=== PATIENT | female | born 1970 | race Caucasian/White ===

== ENCOUNTER → 2020-09-24 | Outpatient (CLI) | payer OTHER ==
[~2020-09-24] MED LIST: ATOR20TA37 PO; CHLO25TA PO; CHLORHEXIDINE 15 ML UDC ONE; LOSA25TA12 PO; VENLAFAXINE PO
[2020-09-24 15:29] LABS: ALANINE AMINOTRANSFERASE 39 U/L (12-78); ANION GAP 6 mmol/L (5-15); CHLORIDE 101 mmol/L (98-107)
[2020-09-24 15:32] LABS: BASOPHILS % (AUTO) 1 % (0-1); EOSINOPHILS % (AUTO) 1 % (1-7); LYMPHOCYTES % (AUTO) 22 % (22-44); MEAN CORPUSCULAR HEMOGLOBIN 30.2 pg (27.0-34.8); MEAN CORPUSCULAR HGB CONC 33.6 g/dL (32.4-35.8); MEAN PLATELET VOLUME 6.8 fL (7.4-10.4); MONOCYTES % (AUTO) 12 % (2-9); NEUTROPHILS % (AUTO) 64 % (42-75); PLATELET COUNT 604 x10^3/uL (130-400); RED BLOOD COUNT 4.17 x10^6/uL (3.82-5.3); RED CELL DISTRIBUTION WIDTH 14.8 % (9.6-15.2)
[2020-09-24 15:33] LABS: INTERNATIONAL NORMALIZED RATIO 0.96 (0.93-1.1); PROTHROMBIN TIME 10.3 Seconds (9.6-11.5)
[2020-09-24 15:34] LABS: ALKALINE PHOSPHATASE 113 U/L (45-117); BILIRUBIN,TOTAL 0.3 mg/dL (0.2-1.0); CREATININE 0.74 mg/dL (0.55-1.02); TOTAL PROTEIN 7.6 g/dL (6.4-8.2)
[2020-09-24 15:38] LABS: MD NO
== END | disposition home or self-care (01) ==
LOC: STAR 14:09
PROVIDERS: ATTEND Obstetrics & Gynecology
DX: Z01.812 Encounter for preprocedural laboratory examination (principal); Z20.822 Contact with and (suspected) exposure to COVID-19
CPT/HCPCS: 71046; 80053; 84703; 85025; 85610; 85730; 86304; 87635; 93005

== ENCOUNTER 2020-09-28 05:39 | Day surgery (SDC) | payer OTHER ==
[~2020-09-28] VITALS: Ht 172.7 cm; Wt 93.1 kg
[2020-09-28 06:23] VITALS: BP 114/80
[2020-09-28] MEDS ORDERED: CHLORHEXIDINE 15 ML UDC MM ONE (06:30)
[2020-09-28] MEDS ORDERED: LACTATED RINGERS 1,000 ML IV SCH (06:30)
[2020-09-28] MEDS ORDERED: CEFOTETAN PMX 2GM/50ML 50 ML IVPB ONE (06:30)
[2020-09-28] MEDS ORDERED: CHLO25TA PO (06:31)
[2020-09-28] MEDS ORDERED: ATOR20TA37 PO (06:31)
[2020-09-28] MEDS ORDERED: VENLAFAXINE PO (06:31)
[2020-09-28] MEDS ORDERED: LOSA25TA12 PO (06:31)
[2020-09-28 06:45] LABS: HCG UR SG 1.023 (1.003-1.030)
[2020-09-28] MEDS ORDERED: BUPIVACAINE/PF 0.25% ONE (07:08)
[2020-09-28] MEDS ORDERED: EPINEPHRINE 1 MG/ML, 1ML ONE (07:08)
[2020-09-28] MEDS ORDERED: INDOCYANINE GREEN 25 MG VIAL ONE (07:08)
[2020-09-28] MEDS ORDERED: MIDAZOLAM 1 MG/ML, 2ML ONE (07:28)
[2020-09-28] MEDS ORDERED: FENTANYL PF 250 MCG/5ML ONE (07:28)
[2020-09-28] MEDS ORDERED: SUCCINYLCHOLINE 20 MG/ML, 10ML ONE (07:39)
[2020-09-28] MEDS ORDERED: ROCURONIUM 10MG/ML,5ML ONE (07:39)
[2020-09-28] MEDS ORDERED: CEFAZOLIN 1,000 MG ONE (07:39)
[2020-09-28] MEDS ORDERED: PROPOFOL 10 MG/ML, 20ML ONE (07:39)
[2020-09-28] MEDS ORDERED: NEOSTIGMINE 1 MG/ML, 10ML ONE (07:39)
[2020-09-28] MEDS ORDERED: ONDANSETRON 2MG/ML, 2ML ONE (07:39)
[2020-09-28] MEDS ORDERED: GLYCOPYRROLATE 0.2MG/1ML, 5ML ONE (07:39)
[2020-09-28] MEDS ORDERED: DEXAMETHASONE 4 MG/ML, 1ML ONE (07:39)
[2020-09-28] MEDS ORDERED: ACETAMINOPHEN 325 MG TABLET PO PRN (08:00)
[2020-09-28] MEDS ORDERED: METHOCARBAMOL 1,000 MG in DEXTROSE 5% 100 ML IV PRN (08:00)
[2020-09-28] MEDS ORDERED: MEPERIDINE/PF 25MG/0.5ML IVPush PRN (08:00)
[2020-09-28] MEDS ORDERED: hydrALAzine 20 MG/ML, 1ML IV PRN (08:00)
[2020-09-28] MEDS ORDERED: PROMETHAZINE 25 MG/ML, 1ML IVPush PRN (08:00)
[2020-09-28] MEDS ORDERED: LABETALOL 5MG/ML, 20ML IV PRN (08:00)
[2020-09-28] MEDS ORDERED: ONDANSETRON 2MG/ML, 2ML IVPush PRN (08:00)
[2020-09-28] MEDS ORDERED: LORazepam 2 MG/ML, 1ML IVPush PRN (08:00)
[2020-09-28] MEDS ORDERED: HYDROmorphone 1 MG/ML, 1ML INJ IVPush PRN (08:00)
[2020-09-28] MEDS ORDERED: PROMETHAZINE 25 MG SUPP PR PRN (08:00)
[2020-09-28] MEDS ORDERED: HEPARIN 1,000 UNITS/ML, 10ML ONE (08:41)
[2020-09-28] MEDS ORDERED: FENTANYL PF 100 MCG/2ML ONE ×3 (09:29→10:57)
[2020-09-28] MEDS: FENTANYL PF 100 MCG/2ML IV PRN ×2 (11:02→11:11)
[2020-09-28] MEDS ORDERED: OXYcodone 5 MG/5 ML ORAL.SOL UDC ONE (11:20)
[2020-09-28] MEDS: OXYcodone 5 MG/5 ML ORAL.SOL UDC PO PRN ×2 (11:22→12:29)
== END 2020-09-28 13:15 | disposition home or self-care (01) ==
LOC: OUT 05:39
PROVIDERS: ATTEND Obstetrics & Gynecology
DX: R19.09 Other intra-abdominal and pelvic swelling, mass and lump (principal); N70.11 Chronic salpingitis; D25.1 Intramural leiomyoma of uterus; D25.2 Subserosal leiomyoma of uterus; N80.0 Endometriosis of uterus; N80.1 Endometriosis of ovary; N70.93 Salpingitis and oophoritis, unspecified; N73.6 Female pelvic peritoneal adhesions (postinfective); I10 Essential (primary) hypertension; D72.829 Elevated white blood cell count, unspecified; E78.5 Hyperlipidemia, unspecified; E66.9 Obesity, unspecified; Z68.32 Body mass index [BMI] 32.0-32.9, adult; Z79.899 Other long term (current) drug therapy; Z87.891 Personal history of nicotine dependence; Z80.3 Family history of malignant neoplasm of breast; Z82.3 Family history of stroke
CPT/HCPCS: 36415; 58552; 81025; 86850; 86900; 86923; 88112; 88305; 88307; 88331; J0171; J0690; J1100; J1644; J2250; J2405; J2704; J2710; J2800; J3010; J7120; S2900; J0330